=== PATIENT | male | born 1980 | race Caucasian/White ===

== ENCOUNTER 2020-05-21 18:42 | Emergency (ER) | payer OTHER ==
[2020-05-21 18:50] VITALS: BP 130/78; PULSE 93; TEMP 99.1; BMI 34.7
[2020-05-21 19:55] LABS: EPITHELIAL CELLS FEW /hpf; URIC ACID CRYSTALS 2+ /hpf (NONE SEEN)
== END 2020-05-21 21:59 | disposition home or self-care (01) ==
LOC: FER 18:42
DX: N20.0 Calculus of kidney (principal)
CPT/HCPCS: 74176-TC; 81003; 81015; 87086; 99284-25

== ENCOUNTER 2023-01-22 09:05 | Emergency (ER) | payer OTHER ==
[2023-01-22 09:20] VITALS: BP 125/89; PULSE 72; RESP 16; TEMP 97.5; BMI 34.4
[2023-01-22] MEDS ORDERED: ACETAMINOPHEN 500 MG TABLET (FP) PO ONE (09:40)
[2023-01-22] MEDS ORDERED: LIDOCAINE 5% TOPICAL PATCH TP ONE (09:40)
[2023-01-22] MEDS ORDERED: KETOROLAC TROMETHAMINE 30 MG/1 ML VIAL IM ONE (09:40)
[2023-01-22] MEDS ORDERED: KETOROLAC TROMETHAMINE 30 MG/1 ML VIAL ONE (09:53)
[2023-01-22] MEDS ORDERED: ACETAMINOPHEN 325 MG TABLET (FP) ONE (09:53)
[2023-01-22] MEDS ORDERED: LIDOCAINE 5% TOPICAL PATCH ONE (09:53)
[2023-01-22] MEDS ORDERED: LIDOCAINE PATCH REMOVAL MC SCH (22:00)
== END 2023-01-22 11:26 | disposition home or self-care (01) ==
LOC: FER 09:05
PROC: 3E0233Z Introduction of Anti-inflammatory into Muscle, Percutaneous Approach (ICD-10-PCS; principal; 2023-01-22)
DX: M54.41 Lumbago with sciatica, right side (principal); R20.0 Anesthesia of skin; R20.2 Paresthesia of skin; X50.0XXA Overexertion from strenuous movement or load, initial encounter
CPT/HCPCS: 99284-25

== ENCOUNTER 2023-05-25 13:01 | Emergency (ER) | payer OTHER ==
[2023-05-25 13:28] VITALS: BP 123/85; PULSE 75; RESP 18; TEMP 98.9; BMI 31.5
[2023-05-25] MEDS ORDERED: LIDOCAINE HCL 1%, 10 MG/ML (20ML VIAL) ONE (13:45)
== END 2023-05-25 13:59 | disposition home or self-care (01) ==
LOC: FER 13:01
PROC: 3E023GC Introduction of Other Therapeutic Substance into Muscle, Percutaneous Approach (ICD-10-PCS; principal; 2023-05-25)
DX: R30.0 Dysuria (principal); R35.89 Other polyuria; N39.0 Urinary tract infection, site not specified
CPT/HCPCS: 36415; 81003; 87086; 87491; 87591; 87661; 99284-25